=== PATIENT | female | born 1990 | race Two or more races ===

== ENCOUNTER 2022-02-12 16:48 | Emergency (ER) | payer OTHER ==
[~2022-02-12] VITALS: Ht 185.4 cm; Wt 151.0 kg
[2022-02-12] MEDS ORDERED: DICLOFENAC POTA50 MG PO (20:31)
== END 2022-02-12 20:44 | disposition home or self-care (01) ==
LOC: ER 16:48
DX: S40.012A Contusion of left shoulder, initial encounter (principal); W18.30XA Fall on same level, unspecified, initial encounter; Y93.9 Activity, unspecified; Y92.018 Other place in single-family (private) house as the place of occurrence of the external cause; Y99.9 Unspecified external cause status